=== PATIENT | female | born 1950 | race Caucasian/White ===

== ENCOUNTER → 2018-04-28 08:27 | Outpatient (CLI) | payer MEDICARE, OTHER, SELFPAY ==
[2018-04-28 09:45] LABS: Add Manual Diff / Slide Review NO; Basophils Percent Auto 0.8 % (0-2); Eosinophils Percent Auto 3.3 % (2-4); Hematocrit 43.8 % (36-46); Hemoglobin 14.7 g/dL (12.0-16.0); Lymphocytes Percent Auto 20.8 % (25-40); Mean Corpuscular HGB Conc 33.5 % (30-36); Mean Corpuscular Hemoglobin 31.6 PG (26-34); Mean Corpuscular Volume 94.3 fL (80-100); Monocytes Percent Auto 5.1 % (3-14); Neutrophils Absolute Auto 4300 /uL (3000-5900); Platelet Count 212 X10^3/uL (150-400); Red Blood Cell Count 4.65 X10^6/uL (4.0-5.2); White Blood Cell Count 6.1 X10^3/uL (4.5-11.0)
[2018-04-28 10:34] LABS: Iron 97 ug/dL (37-170)
== END ==
PROVIDERS: Visit Provider Physician Assistant
DX: L65.9 Nonscarring hair loss, unspecified (principal); D48.5 Neoplasm of uncertain behavior of skin; L81.4 Other melanin hyperpigmentation; L82.1 Other seborrheic keratosis; D22.5 Melanocytic nevi of trunk; Z71.89 Other specified counseling; Z85.828 Personal history of other malignant neoplasm of skin
CPT/HCPCS: 36415; 83540; 85025

== ENCOUNTER → 2018-09-23 09:04 | Outpatient (CLI) | payer MEDICARE, OTHER, SELFPAY ==
[2018-09-23 09:57] LABS: BUN Creatinine Ratio 18.6 (6-22); Blood Urea Nitrogen 13 mg/dL (7-17); Calcium 9.9 mg/dL (8.4-10.2); Carbon Dioxide 30 mmol/L (22-32); Chloride 102 mmol/L (98-107); Cholesterol 246 mg/dL (140-199); Estimated Glomerular Filt Rate > 60.0 mL/min (>60); Glucose 103 mg/dL (80-110); HDL Cholesterol 105 mg/dL (40-60); HEMOLYSIS < 15 (0-50); LDL Cholesterol Calculated 125 mg/dL (<100); Potassium 4.6 mmol/L (3.4-5.1); Sodium 140 mmol/L (137-145); Triglycerides 80 mg/dL (35-150)
== END ==
PROVIDERS: Visit Provider Internal Medicine
DX: E78.5 Hyperlipidemia, unspecified (principal); R10.31 Right lower quadrant pain
CPT/HCPCS: 36415; 80048; 80061

== ENCOUNTER → 2018-09-24 08:58 | Outpatient (CLI) | payer MEDICARE, OTHER, SELFPAY ==
--- NOTE | 2018-09-24 | DI.CT.S_ITS ---
PROCEDURE: CT ABDOMEN PELVIS W CON INDICATIONS: RIGHT LOWER QUADRANT PAIN TECHNIQUE: After the administration of oral and intravenous contrast, 5 mm thick sections acquired from the diaphragms to the symphysis. 5 mm thick coronal and sagittal reformats were performed. For radiation dose reduction, the following was used: automated exposure control, adjustment of mA and/or kV according to patient size. COMPARISON: None. FINDINGS: Image quality: Excellent. ABDOMEN: Lung bases: Lung bases are clear. Heart size is normal. Solid organs: Liver is normal in size and enhancement. Gallbladder is within normal limits. Biliary system is non-dilated. Pancreas enhances normally. Spleen is normal in size and enhancement. No adrenal nodules. Kidneys are normal in size and enhancement, without hydronephrosis. Peritoneum and bowel: There is significant fecal stasis throughout the colon. Suggestion of diffuse wall thickening involving the ascending colon and terminal ileum is seen a right lower quadrant suggestive of infectious inflammatory colitis. There is no signs for acute appendicitis. No free fluid or free air. Nodes and vessels: No retroperitoneal or mesenteric adenopathy. Aorta and inferior vena cava are normal in caliber. Miscellaneous: No ventral hernias. PELVIS: Genitourinary: Bladder wall thickness is normal. Uterus and bilateral adnexa show no gross abnormality. Miscellaneous: No inguinal hernias or adenopathy. Bones: No suspicious bony lesions. No vertebral body compression fractures. IMPRESSION: 1. Constipation. Suggestion of wall thickening involving terminal ileum and ascending colon suspicious for infectious inflammatory ileocolitis. No free fluid or free air. 2. No renal stone or hydronephrosis. Dictated by: Kurt Laws M.D. on 09/24/2018 at 10:36 Approved by: Kurt Laws M.D. on 09/24/2018 at 10:47
== END ==
PROVIDERS: PCP Internal Medicine; Visit Provider Internal Medicine
DX: R10.31 Right lower quadrant pain (principal); K59.00 Constipation, unspecified
CPT/HCPCS: 74177; Q9967

== ENCOUNTER 2018-12-02 09:26 | Day surgery (SDC) | payer MEDICARE, OTHER, SELFPAY ==
--- NOTE | 2018-12-02 | PATH_ITS ---
[facility] Accession Number: [id number] . 01 Material submitted: . PART A: ileum - TERMINAL ILEUM PART B: colon - RIGHT COLON . 02 Diagnosis: A. Terminal Ileum, Biopsy: Small bowel mucosa with no diagnostic abnormality. Negative for active inflammation, dysplasia, and malignancy. . B. Right Colon, Biopsy: Colonic mucosa with no diagnostic abnormality. Negative for active, chronic, and microscopic colitis. Negative for dysplasia and malignancy. BFI12/03/2018 . 02 Electronically signed: . Charissa Rogel MD, Pathologist NPI- [id number] . 01 Gross description: . Part A: TERMINAL ILEUM: Received in formalin are 2 fragment(s) of portillo, soft tissue measuring 0.2 x 0.2 x 0.2 cm to 0.4 x 0.3 x 0.2 cm which is entirely submitted and submitted entirely in 1 cassette(s) Part B: RIGHT COLON: Received in formalin are 2 fragment(s) of portillo, soft tissue measuring 0.3 x 0.3 x 0.2 cm to 0.7 x 0.3 x 0.2 cm which is entirely submitted and submitted entirely in 1 cassette(s) /DMC /D[facility] . 02 Pathologist provided ICD-10: R10.9 . 02 CPT . 482943, [id number] Performed at: 01 [facility] [address] [id number] MD Mariano Doyle MD Phone: [phone] Performed at: 02 [facility] [address] [place], [place] [id number] MD Charissa Rogel MD Phone: [phone]
--- NOTE | 2018-12-02 09:26 | PM.HP.1 ---
History of Present Illness Date Patient Seen: 12/02/18 Chief complaint: [id number] Narrative: 68-year-old female seen at our office on 10/23/2018 due to abnormality seen on CT scan in September 2018 which revealed colon wall thickening in the ascending colon and terminal ileum. please refer to our office note for further details Meds Home Medications Medication Instructions Recorded Confirmed Type biotin 5,000 mcg SUBLINGUAL DAILY 12/02/18 12/02/18 History cholecalciferol (vitamin D3) 1,000 unit PO DAILY 12/02/18 12/02/18 History [Vitamin D3] vit C,D-To-xumyx-lutein-zeaxan 1 tab PO BID 12/02/18 12/02/18 History [PreserVision AREDS-2] Allergies Allergy/AdvReac Type Severity Reaction Status Date / Time No Known Drug Allergies Allergy Verified 12/02/18 09:44 Exam Narrative Exam Narrative: General: Patient is well developed, not in apparent distress Cardiovascular: Regular rate and rhythm, no murmurs, rubs, or gallops; no evidence of edema; no palpable abdominal aortic aneurysm Gastrointestinal: Normoactive bowel sounds, soft, nontender, nondistended, no rebound tenderness, no hepatosplenomegaly, no evidence of hernia Assessment & Plan Assessment & Plan narrative: 68-year-old female with abnormal CT findings of possible wall thickening in the right colon and terminal ileum who is here for colonoscopy Regarding the procedure(s), the risks and potential complications, benefits, and alternatives (including not doing the procedure) were discussed with the patient. The risks include but are not limited to bleeding, splenic injury, infection, perforation which may require surgical intervention, missed lesions, and adverse reactions to sedative medicines. After a question and answer period, the patient agreed to proceed with the procedure(s) and gives informed consent.
[2018-12-02 09:48] VITALS: BMI 18.3
[2018-12-02 09:55] VITALS: BP 142/82; PULSE 84; RESP 12; TEMP 37.3; O2SAT 99
[2018-12-02] MEDS: SODIUM CHLORIDE 0.9% 1,000 ML 70 ML IV (10:08)
[2018-12-02] MEDS: MIDAZOLAM 5 MG/5 ML VIAL IV (11:12)
[2018-12-02] MEDS: fentaNYL 250 MCG/5 ML INJ IV (11:13)
[2018-12-02 11:31] VITALS: BP 107/59; PULSE 81; RESP 12; TEMP 37; O2SAT 99
--- NOTE | 2018-12-02 11:31 | PM.OP.ENDO ---
Operative Date/Time/Diagnoses Date of procedure: 12/02/18 Procedure Notes Procedure in detail: Surgeon: Ajit Saleem MD Procedure: Colonoscopy with polypectomy and biopsy Preoperative diagnosis: Abnormal CT with thickening in right colon and terminal ileum Postoperative diagnosis: Normal visualized right colon and terminal ileum; ascending colon polyp completely resected but not retrieved, grade 1 internal hemorrhoids Medications: Conscious sedation using 6 mg IV of Midazolam and 200 mcg IV of Fentanyl Preanesthesia Assessment An H and P was performed/updated and the Px?s ASA class is 1. The procedure was discussed in detail with the patient. The potential risks and complications including infection, bleeding, missed lesions, perforation, need for surgery in case of perforation, prolonged hospital stay, and were explained. A brief question and answer period was allotted and once all questions were answered, informed consent was obtained. The patient was brought back to the procedure room and placed on standard monitoring. The patient?s vital signs were monitored continuously throughout the entire procedure. Prior to starting, a timeout was performed to confirm the patient?s identity, allergies, medications, and procedure. Procedure in detail The patient was placed in left lateral decubitus position and once adequate sedation was obtained a MADDISON was performed. The digital rectal examination did not reveal any palpable lesions. The tip of the colonoscope was placed in the anal canal and advanced without difficulty all the way to the cecum which was identified by the appendiceal orifice and the ileocecal valve. The terminal ileum was intubated to a distance of 10 cm from the ileocecal valve with no abnormalities in the mucosa. Random biopsies were taken with minimal bleeding. The colonoscope was then brought back to the cecum and careful examination of all bernardo of the colon was performed with irrigation of any residual stool. The colonic mucosa appeared normal in the right colon and random colon biopsies were taken with minimal bleeding. In the ascending colon, there was a 5 mm sessile polyp which was removed by means of a cold snare. Resection was complete however the polyp was unable to be retrieved. There was minimal bleeding. The remainder of the colonic mucosa appeared normal. Retroflexion was performed in the rectum which revealed grade 1 internal hemorrhoids The patient tolerated the procedure well and will be brought back to the recovery area to be discharged once criteria are met. The prep was judged to be good and adequate to identify polyps less than 5 mm. The withdrawal time was 10 minutes. The total physician intraservice time was 21 minutes. Complications There were no complications and estimated blood loss was minimal. Recommendations: Resume previous diet Continue outPx medications Follow up pathology results Repeat colonoscopy in 5 years as the unretrieved polyp had endoscopic appearance consistent with a sessile serrated adenoma Office follow up with Lauren Troy at next available visit An emergency contact number was given to the patient for any complications related to the procedure
[2018-12-02 11:36] VITALS: BP 111/69; PULSE 82; RESP 14; O2SAT 99
--- NOTE | 2018-12-02 11:37 | PM.DS.1 ---
History of Present Illness Chief complaint: [id number] Narrative: 68-year-old female seen at our office on 10/23/2018 due to abnormality seen on CT scan in September 2018 which revealed colon wall thickening in the ascending colon and terminal ileum. please refer to our office note for further details Discharge Providers Discharge Date: 12/02/18 Primary care physician: Kenisha Rangel MD Discharge provider: Ajit Saleem MD Exam Vital Signs (past 8 hours): - 12/02/18 09:55 12/02/18 11:31 12/02/18 11:36 Temperature 99.2 F 98.6 F Pulse Rate 84 81 82 Respiratory Rate 12 12 14 Blood Pressure 142/82 H 107/59 L 111/69 Pulse Oximetry 99 99 99 Oxygen Delivery Method Room Air Narrative Exam Narrative: General: Patient is well developed, not in apparent distress Cardiovascular: Regular rate and rhythm, no murmurs, rubs, or gallops; no evidence of edema; no palpable abdominal aortic aneurysm Gastrointestinal: Normoactive bowel sounds, soft, nontender, nondistended, no rebound tenderness, no hepatosplenomegaly, no evidence of hernia; positive surgical scars Discharge Plan Discharge Med Rec/Prescriptions Prescriptions: Continued cholecalciferol (vitamin D3) [Vitamin D3] 1,000 unit Capsule 1,000 unit PO DAILY RF: 0 PreserVision AREDS-2 [id number] ih-helt-dq-mg Capsule 1 tab PO BID RF: 0 biotin 5,000 mcg Tablet, Sublingual 5,000 mcg SUBLINGUAL DAILY RF: 0 Follow up/Referrals: Kenisha Rangel MD [Primary Care Provider] - Discharge Orders: Discharge (Order); Ordered 12/02/18 Ordered By: Ajit Saleem Provider Discharge Instructions Diet: Diet as Tolerated Visit Report/Discharge Packet Stand Alone Forms: Colonoscopy Result: Med Grp Discharge Data Primary Care Provider: Kenisha Rangel Attending Provider: Ajit Saleem
[2018-12-02 11:41] VITALS: BP 107/70; PULSE 81; RESP 16; O2SAT 98
[2018-12-02 11:45] VITALS: BP 108/71; PULSE 82; RESP 16; O2SAT 96
[2018-12-02 12:27] VITALS: BP 107/69; PULSE 72; RESP 16
== END 2018-12-02 12:25 ==
LOC: ENDO 09:29
PROVIDERS: PCP Internal Medicine; Visit Provider Internal Medicine Gastroenterology
PROC: 0DJD8ZZ Inspection of Lower Intestinal Tract, Via Natural or Artificial Opening Endoscopic (ICD-10-PCS; CPT 45378; principal; 2018-12-02 11:00)
DX: R93.3 Abnormal findings on diagnostic imaging of other parts of digestive tract (principal); R19.4 Change in bowel habit; R19.03 Right lower quadrant abdominal swelling, mass and lump; D12.2 Benign neoplasm of ascending colon; K64.0 First degree hemorrhoids
CPT/HCPCS: 45385; 88305; J2250; J3010

== ENCOUNTER → 2019-10-11 07:39 | Outpatient (CLI) | payer MEDICARE, OTHER, SELFPAY ==
--- NOTE | 2019-10-11 | DI.RAD.S_ITS ---
PROCEDURE: FL BARIUM SWALLOW INDICATIONS: Dysphagia, unspecified COMPARISON: None. FINDINGS: Function: Esophageal dysmotility is present. There is reflux to level of the mid esophagus. Morphology: Air-contrast images demonstrate normal mucosal morphology. Single contrast views show no esophageal strictures, extrinsic mass effects, or diverticula. Limited images of the stomach demonstrate normal appearance. IMPRESSION: Slight esophageal dysmotility. Spontaneous gastroesophageal reflux. Dictated by: Jassi Palacios M.D. on 10/11/2019 at 11:40 Approved by: Jassi Palacios M.D. on 10/11/2019 at 11:50
== END ==
PROVIDERS: PCP Internal Medicine; Referring Provider Internal Medicine; Visit Provider Internal Medicine
DX: R13.10 Dysphagia, unspecified (principal); K21.9 Gastro-esophageal reflux disease without esophagitis
CPT/HCPCS: 74220

== ENCOUNTER → 2019-10-14 13:15 | Outpatient (CLI) | payer MEDICARE, OTHER, SELFPAY | PROVIDERS: PCP Internal Medicine; Referring Provider Internal Medicine; Visit Provider Internal Medicine | DX: M81.0 Age-related osteoporosis without current pathological fracture (principal); Z78.0 Asymptomatic menopausal state; Z85.3 Personal history of malignant neoplasm of breast; Z82.62 Family history of osteoporosis | CPT/HCPCS: 77080 ==

== ENCOUNTER → 2021-02-06 09:59 | Outpatient (CLI) | payer MEDICARE, OTHER, SELFPAY ==
[2021-02-06 11:11] LABS: Add Manual Diff / Slide Review NO; Basophils Absolute Auto 0 /uL (0-100); Basophils Percent Auto 0.9 % (0-2); Eosinophils Absolute Auto 100 /uL (0-450); Eosinophils Percent Auto 3.8 % (2-4); Hematocrit 41.2 % (36-46); Hemoglobin 13.5 g/dL (12.0-16.0); Lymphocytes Absolute Auto 1400 /uL (1100-4500); Lymphocytes Percent Auto 40.4 % (25-40); Mean Corpuscular HGB Conc 32.8 % (30-36); Mean Corpuscular Volume 94.3 fL (80-100); Monocytes Absolute Auto 400 /uL (0-900); Monocytes Percent Auto 10.3 % (3-14); Neutrophils Absolute Auto 1600 /uL (1500-7000); Neutrophils Percent Auto 44.6 % (50-75); Platelet Count 223 X10^3/uL (150-400); Red Blood Cell Count 4.37 X10^6/uL (4.0-5.2); Red Cell Distribution Width 13.4 % (11.6-14.8); White Blood Cell Count 3.5 X10^3/uL (4.5-11.0)
[2021-02-06 11:55] LABS: HEMOLYSIS < 15 (0-50)
[2021-02-06 12:07] LABS: Alanine Aminotransferase 15 IU/L (<35); Albumin Globulin Ratio 1.6 (1.0-2.8); Alkaline Phosphatase 90 U/L (38-126); Aspartate Aminotransferase 29 IU/L (14-36); BUN Creatinine Ratio 17.6 (6-22); Bilirubin Total 0.5 mg/dL (0.2-1.3); Blood Urea Nitrogen 12 mg/dL (7-17); Calcium 9.4 mg/dL (8.4-10.2); Carbon Dioxide 25 mmol/L (22-32); Chloride 104 mmol/L (98-107); Cholesterol 253 mg/dL (140-199); Estimated Glomerular Filt Rate > 60.0 mL/min (>60); Globulin 2.5 g/dL (1.7-4.1); Glucose 97 mg/dL (80-110); HDL Cholesterol 108 mg/dL (40-60); LDL Cholesterol Calculated 131 mg/dL (<100); Potassium 3.9 mmol/L (3.4-5.1); Sodium 137 mmol/L (137-145); Total Protein 6.5 g/dL (6.3-8.2); Triglycerides 72 mg/dL (35-150)
[2021-02-06 12:32] LABS: TSH w/ Reflex to FT4 1.53 uIU/mL (0.47-4.68)
[2021-02-06 18:40] LABS: Vitamin B12 196 pg/mL (239-931)
== END ==
PROVIDERS: PCP Internal Medicine; Referring Provider Internal Medicine; Visit Provider Internal Medicine
DX: H93.13 Tinnitus, bilateral (principal); E78.5 Hyperlipidemia, unspecified
CPT/HCPCS: 36415; 80053; 80061; 82607; 84443; 85025

== ENCOUNTER → 2021-02-28 09:50 | Outpatient (CLI) | payer MEDICARE, OTHER, SELFPAY ==
[2021-02-28 10:38] LABS: Estimated Glomerular Filt Rate > 60.0 mL/min (>60)
--- NOTE | 2021-02-28 11:12 | DI.CT.S_ITS ---
PROCEDURE: CT SOFT TISSUE NECK W CON INDICATIONS: NECK MASS TECHNIQUE: After the administration of intravenous contrast, 3.0 mm axial sections acquired from the sella to the aortic arch. Additional oblique axial 3.0 mm sections acquired through the pharynx. 3 mm thick coronal and sagittal reformats were generated. For radiation dose reduction, the following was used: automated exposure control. COMPARISON: None. FINDINGS: Image quality: Limited by beam hardening artifact related to metallic dental hardware. Lymph nodes: No enlarged lymph nodes seen throughout the neck. Vessels: Visualized vasculature appears patent. Neck spaces: The oropharynx, nasopharynx, and pharynx demonstrate no mucosal lesions. The vocal cords, false vocal cords, pyriform sinuses, epiglottis, vallecula, and tongue base all appear normal. Extramucosal spaces appear unremarkable. Glands: The parotid and submandibular glands appear normal. 5 millimeter hypoattenuating nodules noted in the right and left lobes of the thyroid gland. Miscellaneous: Visualized brain and orbits appear normal. Bilateral lung apex pleural-parenchymal scarring. Superficial soft tissues appear normal. Bones: No suspicious bony lesions. Spine degenerative disc disease and facet arthropathy. Reversal normal cervical spine curvature. Visualized sinuses and mastoids appear unremarkable. IMPRESSION: 1. No mucosal based mass. 2. No lymphadenopathy based on size criteria. 3. 5 millimeter thyroid nodules. Recommend thyroid ultrasound for definitive characterization. Dictated by: Dunia León MD, PhD on 02/28/2021 at 12:36 Approved by: Dunia León MD, PhD on 02/28/2021 at 12:40
== END ==
PROVIDERS: PCP Internal Medicine; Referring Provider Internal Medicine; Visit Provider Internal Medicine
DX: R22.1 Localized swelling, mass and lump, neck (principal)
CPT/HCPCS: 36415; 70491; 82565

== ENCOUNTER → 2021-03-20 08:05 | Outpatient (CLI) | payer MEDICARE, OTHER, SELFPAY ==
--- NOTE | 2021-03-20 | DI.US.S_ITS ---
PROCEDURE: US THYROID INDICATIONS: NODULE TECHNIQUE: Real-time scanning was performed of the thyroid gland, with image documentation. COMPARISON: [facility], [place], THYROID, 01/31/2011, 8:35. FINDINGS: Right: Thyroid lobe measures 4.6 x 1.7 x 1.4 cm, and is homogeneous in echotexture. 7 mm colloid cyst. Left: Thyroid lobe measures 4.2 x 1.6 x 1.5 cm, and is homogenous in echotexture. Isthmus: 2.1 mm thick. Nodule number: 1 Location: Left inferior medial Size: 0.8 x 0.4 x 0.6 cm. Composition: Solid Echogenicity: Isoechoic Shape: wider than tall. Margins: Smooth Echogenic foci: None Total points: 3 ACR TI-RADS category: Mildly suspicious. Nodule number: 2 Location: Right mid Size: 0.7 x 0.4 x 0.5 cm. Composition: Predominantly solid Echogenicity: Hypoechoic Shape: wider than tall. Margins: Smooth Echogenic foci: None Total points: 4 ACR TI-RADS category: Moderately suspicious Nodule number: 3 Location: Right isthmus Size: 0.5 x 0.3 x 0.6 cm. Composition: Solid Echogenicity: Hypoechoic Shape: wider than tall. Margins: Smooth Echogenic foci: None Total points: 4 ACR TI-RADS category: Moderately suspicious IMPRESSION: Bilateral thyroid nodules as above. Given the small size, no follow-up is warranted. ACR TI-RADS definitions and recommendations: TI-RADS 1 (benign): 0 points. FNA not needed. TI-RADS 2 (not suspicious): 2 points. FNA not needed. TI-RADS 3 (mildly suspicious): 3 points. * FNA if 2.5 cm or larger, follow up if 1.5 cm or larger (at 1, 3, and 5 years). TI-RADS 4 (moderately suspicious): 4-6 points. * FNA if 1.5 cm or larger, follow up if 1 cm or larger (at 1, 2, 3, and 5 years). TI-RADS 5 (highly suspicious): 7 points or more. * FNA if 1 cm or larger, follow up if 0.5 cm or larger (every year for 5 years). Dictated by: [facility] Interpreted: Aiden Peace MD on 03/20/2021 at 11:18 Transcribed by: KIMBERLY on 03/20/2021 at 11:20 Approved by: Aiden Peace M.D. on 03/20/2021 at 15:38
== END ==
PROVIDERS: PCP Internal Medicine; Referring Provider Internal Medicine; Visit Provider Internal Medicine
DX: E04.2 Nontoxic multinodular goiter
CPT/HCPCS: 76536

== ENCOUNTER 2021-11-01 22:29 | Emergency (ER) | payer MEDICARE, OTHER, SELFPAY ==
[2021-11-01 22:36] VITALS: BP 172/101; PULSE 115; RESP 16; TEMP 36.9; O2SAT 98
[2021-11-02] VITALS (8 sets, daily range): BP systolic 122–147; BP diastolic 65–79; PULSE 82–98; RESP 13–24; O2SAT 96–99
--- NOTE | 2021-11-02 00:43 | ED_ITS ---
HPI - Arrhythmia/Palpitations General Chief Complaint: Arrhythmia/Palpitations Stated Complaint: rapid heart rate, stressed, lt arm pulsing Time Seen by Provider: 11/01/21 23:36 Source: patient Mode of arrival: Family Vehicle History of Present Illness HPI narrative: Otherwise healthy 71-year-old woman presents complaining of palpitations, sense that her heart is beating too fast. Two nights ago she had cold chills tonight she noticed some pressure in her left arm associated with the palpitations. Also reports mild dizziness with her heart rate slightly elevated. She states that she is having no difficulty with exercise and in fact walked for and 1/2 miles yesterday without problems. She has a history of breast cancer post lum pectomy and radiation in 2003. She reports she is on no medications and she has never had similar palpitations or concerns. She reports no recent fevers, cough, vomiting, diarrhea, headaches, abdominal pain, lower extremity edema Related Data Home Medications Medication Instructions Recorded Confirmed biotin 5,000 mcg sublingual tablet 5,000 mcg SUBLINGUAL DAILY 12/02/18 12/02/18 cholecalciferol (vitamin D3) 25 1,000 unit PO DAILY 12/02/18 12/02/18 mcg (1,000 unit) capsule (Vitamin D3) vit C 250 mg-vit E 90 mg-zinc 40 1 tab PO BID 12/02/18 12/02/18 mg-copper 1 gm-jnwnnv-eraqfi capsule (PreserVision AREDS-2) Allergies Allergy/AdvReac Type Severity Reaction Status Date / Time No Known Drug Allergies Allergy Verified 11/01/21 22:38 Review of Systems Review of Systems Narrative: Remainder of complete review of systems is otherwise unremarkable except for that included in the HPI. Patient History Social History Smoking Status: Never smoker Smoking Status: Never smoker alcohol intake frequency: 0-2 drinks per day Alcohol type: wine Substance Use Type: does not use Exam Initial Vital Signs Initial Vital Signs: Vital Signs Temperature 98.5 F 11/01/21 22:36 Pulse Rate 115 H 11/01/21 22:36 Respiratory Rate 16 11/01/21 22:36 Blood Pressure 172/101 H 11/01/21 22:36 Pulse Oximetry 98 11/01/21 22:36 General: Healthy appearing, in no acute distress. Able to give a complete and coherent history. Well-nourished well-developed HEENT: Moist mucous membranes, normal sclera with reactive pupils, Neck: No JVD, supple Respiratory: Lungs are clear to auscultation, no wheezing no rales no rhonchi. Full and symmetrical air movement Cardiac: mild tachycardia with no murmurs, no bruits Abdomen: Soft, nontender, good bowel tones, no flank pain Skin: Warm and dry, no rashes Neurologic: Grossly neurologically intact with no obvious asymmetries or abnormalities Extremities: No trauma, well perfused Psych: Cooperative, appropriate insight and affect Course Orders Ordered: ED Orders 11/02/21 00:59 Chest [XR chest 1V] Stat 11/02/21 01:05 Complete Blood Count AUTO DIFF Stat Comprehensive Metabolic Panel Stat D Dimer Stat Magnesium Stat Thyroid Stimulating Hormone Stat Troponin I Stat 11/02/21 03:15 Trop I [Troponin I] Stat Discontinued Medications Sodium Chloride (Normal Saline 0.9%) 1,000 mls @ 1,000 mls/hr IV BOLUS ONE Stop: 11/02/21 01:50 Last Infusion: 11/02/21 02:14 Dose: 0 mls/hr Documented by: Admin: 11/02/21 01:12 Dose: 1,000 mls/hr Documented by: SAVANNAH Vital Signs Vital signs: Vital Signs - 8 hr 11/01/21 22:36 11/02/21 01:13 11/02/21 01:14 Temperature 98.5 F Pulse Rate 115 H 92 H 90 Respiratory Rate 16 22 21 Blood Pressure 172/101 H 140/79 Pulse Oximetry 98 96 MDM - Arrhythmia/Palpitations Lab Data Result diagrams: 11/02/21 01:05 11/02/21 01:05 Labs: Lab Results 11/02/21 11/02/21 11/02/21 Range/Units 01:05 01:05 01:05 WBC 6.6 (4.5-11.0) X10^3/uL RBC 4.35 (4.0-5.2) X10^6/uL Hgb 13.4 (12.0-16.0) g/dL Hct 40.7 (36-46) % MCV 93.6 (80-100) fL MCH 30.9 (26-34) PG MCHC 33.0 (30-36) % RDW 13.0 (11.6-14.8) % Plt Count 213 (150-400) X10^3/uL Neut % (Auto) 73.0 (50-75) % Lymph % (Auto) 19.4 L (25-40) % [place] % (Auto) 5.9 (3-14) % Eos % (Auto) 0.7 L (2-4) % Baso % (Auto) 1.0 (0-2) % Neut # (Auto) 4800 (3028-4252) /uL Lymph # (Auto) 1300 (3442-5755) /uL [place] # (Auto) 400 (0-900) /uL Eos # (Auto) 0 (0-450) /uL Baso # (Auto) 100 (0-100) /uL D-Dimer < 200 (<230) ng/mL Sodium 137 (137-145) mmol/L Potassium 3.8 (3.4-5.1) mmol/L Chloride 107 (98-107) mmol/L Carbon Dioxide 24 (22-32) mmol/L BUN 14 (7-17) mg/dL Creatinine 0.75 (0.52-1.04) mg/dL Estimated GFR > 60.0 (>60) mL/min BUN/Creatinine Ratio 18.7 (6-22) Glucose 120 H (80-110) mg/dL Calcium 9.2 (8.4-10.2) mg/dL Magnesium 1.8 (1.6-2.3) mg/dL Total Bilirubin 0.4 (0.2-1.3) mg/dL AST 35 (14-36) IU/L ALT 21 (<35) IU/L Alkaline Phosphatase 110 (38-126) U/L Troponin I < 0.012 (0.01-0.034) ng/mL Total Protein 7.0 (6.3-8.2) g/dL Albumin 4.2 (3.5-5.0) g/dL Globulin 2.8 (1.7-4.1) g/dL Albumin/Globulin Ratio 1.5 (1.0-2.8) TSH (0.47-4.68) uIU/mL 11/02/21 11/02/21 Range/Units 01:05 03:15 WBC (4.5-11.0) X10^3/uL RBC (4.0-5.2) X10^6/uL Hgb (12.0-16.0) g/dL Hct (36-46) % MCV (80-100) fL MCH (26-34) PG MCHC (30-36) % RDW (11.6-14.8) % Plt Count (150-400) X10^3/uL Neut % (Auto) (50-75) % Lymph % (Auto) (25-40) % [place] % (Auto) (3-14) % Eos % (Auto) (2-4) % Baso % (Auto) (0-2) % Neut # (Auto) (4326-8418) /uL Lymph # (Auto) (3062-8294) /uL [place] # (Auto) (0-900) /uL Eos # (Auto) (0-450) /uL Baso # (Auto) (0-100) /uL D-Dimer (<230) ng/mL Sodium (137-145) mmol/L Potassium (3.4-5.1) mmol/L Chloride (98-107) mmol/L Carbon Dioxide (22-32) mmol/L BUN (7-17) mg/dL Creatinine (0.52-1.04) mg/dL Estimated GFR (>60) mL/min BUN/Creatinine Ratio (6-22) Glucose (80-110) mg/dL Calcium (8.4-10.2) mg/dL Magnesium (1.6-2.3) mg/dL Total Bilirubin (0.2-1.3) mg/dL AST (14-36) IU/L ALT (<35) IU/L Alkaline Phosphatase (38-126) U/L Troponin I < 0.012 (0.01-0.034) ng/mL Total Protein (6.3-8.2) g/dL Albumin (3.5-5.0) g/dL Globulin (1.7-4.1) g/dL Albumin/Globulin Ratio (1.0-2.8) TSH 1.55 (0.47-4.68) uIU/mL Imaging Data Chest x-ray: Radiologist's Impresson: FINDINGS:? ? Surgical changes and devices:? Surgical clips in the right axilla. ? Lungs and pleura:? Lungs are clear.? No pleural effusions or pneumothorax.? ? Mediastinum:? Mediastinal contours appear normal.? Heart size is normal.? ? Bones and chest wall:? No suspicious bony lesions.? Overlying soft tissues appear unremarkable.? ? IMPRESSION:? No acute cardiopulmonary disease process. ? ? Dictated by: Dunia León MD, PhD on 11/02/2021 at 1:30 ? ECG Data Interpretation: Sinus tachycardia with PACs at a rate of [address] depression incomplete Right bundle branch block MDM Narrative Medical decision making narrative: Otherwise healthy 71-year-old woman who presents with sensation of palpitations noted to be in sinus tachycardia with PACs. No evidence of electrolyte abnormalities acute coronary syndrome or hyperthyroidism. No evidence of infection, significant anemia and pulmonary embolism is ruled out with a normal D-dimer. After a L of fluid she had her heart rate has come down into the mid 80s. Will repeat a troponin at 2 hr. given the subtle lateral ST depression appreciated on her EKG Repeat rope is unremarkable. Blood pressure is 140/79 heart rate at rest is in the mid removed she is having no arm or chest pain. At this point definitely not acute coronary syndrome. Uncertain etiology for the relative tachycardia b ut it did respond to a L of fluid. Reassurance is given have asked her to try and establish care with a primary care physician to review this and see if she does need additional cardiac evaluation. Discharge Plan Departure Patient Disposition: Home Clinical Impression: Sinus tachycardia Instructions: DI for Arrhythmias Activity Restrictions/Additional Instructions: Thank you for coming in today Your rapid heart rate was still normal sinus rhythm. There was no sign of pathologic or abnormal rhythm change. There is no evidence of heart attack or acute coronary syndrome, no significant anemia, no blood clots in your lungs, normal thyroid studies, the size and shape of your heart is normal and reassuring. Your heart rate did come down slightly with 1 L of IV saline but your lab work does not suggest dramatic dehydration. At this time I do not have a complete explanation for why you are having a rapid heart rate this evening, but I did not find a life-threatening explanation or a ny findings that would suggest you need to remain in the hospital for further evaluation Believe is safe for you to go home. Would recommend that you establish care with a primary care physician to follow-up on this episode particularly if your continuing to have other episodes of tachycardia in the evenings. It is safe to continue your usual exercise routines If you have new complaints, worsening tachycardia, increasing arm or chest pain or any associated sweatiness or shortness of breath you do need to return to the ER for further evaluation. Prescriptions: No Action cholecalciferol (vitamin D3) [Vitamin D3] 1,000 unit Capsule 1,000 unit PO DAILY 0RF PreserVision AREDS-2 [id number] bg-[id number]-yy-mg Capsule 1 tab PO BID 0RF biotin 5,000 mcg Tablet, Sublingual 5,000 mcg SUBLINGUAL DAILY 0RF Referrals: Kenisha Rangel MD [Primary Care Provider] -
--- NOTE | 2021-11-02 00:59 | DI.RAD.S_ITS ---
PROCEDURE: XR CHEST 1V INDICATIONS: palpitations TECHNIQUE: One view of the chest was acquired. COMPARISON: None. FINDINGS: Surgical changes and devices: Surgical clips in the right axilla. Lungs and pleura: Lungs are clear. No pleural effusions or pneumothorax. Mediastinum: Mediastinal contours appear normal. Heart size is normal. Bones and chest wall: No suspicious bony lesions. Overlying soft tissues appear unremarkable. IMPRESSION: No acute cardiopulmonary disease process. Dictated by: Dunia León MD, PhD on 11/02/2021 at 1:30 Approved by: Dunia León MD, PhD on 11/02/2021 at 1:31
[2021-11-02] MEDS: SODIUM CHLORIDE 0.9% 1,000 ML 1000 ML IV (01:12)
[2021-11-02 01:20] LABS: Add Manual Diff / Slide Review NO; Basophils Absolute Auto 100 /uL (0-100); Eosinophils Absolute Auto 0 /uL (0-450); Eosinophils Percent Auto 0.7 % (2-4); Hematocrit 40.7 % (36-46); Hemoglobin 13.4 g/dL (12.0-16.0); Lymphocytes Absolute Auto 1300 /uL (1100-4500); Lymphocytes Percent Auto 19.4 % (25-40); Mean Corpuscular Hemoglobin 30.9 PG (26-34); Mean Corpuscular Volume 93.6 fL (80-100); Monocytes Absolute Auto 400 /uL (0-900); Monocytes Percent Auto 5.9 % (3-14); Neutrophils Absolute Auto 4800 /uL (1500-7000); Platelet Count 213 X10^3/uL (150-400); Red Blood Cell Count 4.35 X10^6/uL (4.0-5.2); White Blood Cell Count 6.6 X10^3/uL (4.5-11.0)
[2021-11-02 01:29] LABS: Alanine Aminotransferase 21 IU/L (<35); Albumin 4.2 g/dL (3.5-5.0); Albumin Globulin Ratio 1.5 (1.0-2.8); Alkaline Phosphatase 110 U/L (38-126); Aspartate Aminotransferase 35 IU/L (14-36); BUN Creatinine Ratio 18.7 (6-22); Bilirubin Total 0.4 mg/dL (0.2-1.3); Blood Urea Nitrogen 14 mg/dL (7-17); Calcium 9.2 mg/dL (8.4-10.2); Carbon Dioxide 24 mmol/L (22-32); Chloride 107 mmol/L (98-107); Estimated Glomerular Filt Rate > 60.0 mL/min (>60); Globulin 2.8 g/dL (1.7-4.1); Glucose 120 mg/dL (80-110); HEMOLYSIS 31 (0-50); Magnesium 1.8 mg/dL (1.6-2.3); Potassium 3.8 mmol/L (3.4-5.1); Sodium 137 mmol/L (137-145)
[2021-11-02 01:41] LABS: Troponin I < 0.012 ng/mL (0.01-0.034)
[2021-11-02 02:06] LABS: D Dimer < 200 ng/mL (<230)
[2021-11-02 02:13] LABS: Thyroid Stimulating Hormone 1.55 uIU/mL (0.47-4.68)
[2021-11-02 03:52] LABS: Troponin I < 0.012 ng/mL (0.01-0.034)
== END 2021-11-02 04:15 | disposition home or self-care (01) ==
PROVIDERS: Emergency Provider Emergency Medicine; PCP Internal Medicine
DX: R00.0 Tachycardia, unspecified (principal)
CPT/HCPCS: 36415; 71045; 80053; 83735; 84443; 84484; 85025; 85379; 93005; 93010; 96360; 99284